=== PATIENT | female | born 1980 | race Caucasian/White ===

== ENCOUNTER → 2017-01-14 | Outpatient (REF) | payer OTHER, MEDICAID | LOC: M SFHCWAGY 15:35 | PROVIDERS: ATTEND Nurse Practitioner Family | DX: Z11.3 Encounter for screening for infections with a predominantly sexual mode of transmission (principal); R35.0 Frequency of micturition ==

== ENCOUNTER → 2017-01-17 | Outpatient (CLI) | payer MEDICAID ==
--- NOTE | 2017-01-17 12:13 | REP ---
Pelvic sonography: History: Menorrhagia. Findings: Transabdominal and transvaginal scanning are performed. Uterine dimensions are 10.1 x 4.9 x 5.7 cm. Endometrial echo 0.4 cm thick. No focal uterine mass is seen. An IUD is seen in good position. There is a small quantity of fluid in the cul-de-sac. There is a 2.2 x 0.9 x 1.9 cm complex cystic area in the right ovary. Adjacent to this, there are smaller 1.7 and 1.3 cm cysts. These appear to be follicle cysts. Overall dimensions of the right ovary are 5.2 x 3.4 x 2.8 cm. Left ovary dimensions of 3.0 x 1.4 x 1.7 cm. Left ovary is unremarkable. Impression: Hypoechoic 2.2 cm cystic area right ovary compatible with hemorrhagic follicle. Otherwise unremarkable pelvic sonography. IUD in good position.
== END ==
LOC: M WHC 10:26
PROVIDERS: ATTEND Nurse Practitioner Family
DX: N92.1 Excessive and frequent menstruation with irregular cycle (principal); Z97.5 Presence of (intrauterine) contraceptive device; N83.201 Unspecified ovarian cyst, right side

== ENCOUNTER → 2017-02-27 | Outpatient (REF) | payer OTHER | LOC: M SFHCWAGY 09:44 | PROVIDERS: ATTEND Nurse Practitioner Family | DX: Z12.4 Encounter for screening for malignant neoplasm of cervix (principal) ==

== ENCOUNTER 2019-04-30 21:22 | Emergency (ER) | payer OTHER ==
[~2019-04-30] VITALS: Ht 162.6 cm; Wt 99.1 kg
[2019-04-30 22:42] LABS: BASO % 0.5 % (0.0-1.0); EOS # 0.1 10^3/uL (0.0-0.50); EOS % 1.2 % (0.0-3.0); HEMATOCRIT 42.3 % (36.0-47.0); HEMOGLOBIN 14.6 g/dl (12.0-15.5); LYMPH # 3.1 10^3/uL (1.5-4.5); LYMPH % 36.3 % (24.0-44.0); MEAN CORPUSCULAR HEMOGLOBIN 32.3 pg (27.0-33.0); MEAN CORPUSCULAR HGB CONC 34.5 g/dl (32.0-36.5); MEAN CORPUSCULAR VOLUME 93.6 fl (80.0-96.0); MONO # 0.8 10^3/uL (0.0-0.8); NEUTROPHILS # 4.6 10^3/uL (1.8-7.7); NEUTROPHILS % 52.9 % (36.0-66.0); PLATELET COUNT, AUTOMATED 236 10^3/uL (150-450); RED BLOOD COUNT 4.52 10^6/uL (4.00-5.40); WHITE BLOOD COUNT 8.6 10^3/uL (4.0-10.0)
[2019-04-30] MEDS ORDERED: KETOROLAC 30 MG/ML VIAL (J1885) IV ONE (23:00)
[2019-04-30 23:09] LABS: ALBUMIN 3.6 GM/DL (3.2-5.2); ALT/SGPT 119 U/L (12-78); BILIRUBIN,DIRECT 0.2 MG/DL (0.0-0.2); BILIRUBIN,TOTAL 0.6 MG/DL (0.2-1.0); BLOOD UREA NITROGEN 8 MG/DL (7-18); CARBON DIOXIDE LEVEL 31 MEQ/L (21-32); CHLORIDE LEVEL 106 MEQ/L (98-107); CREATININE FOR GFR 0.59 MG/DL (0.55-1.30); GLOMERULAR FILTRATION RATE > 60.0 (>60); GLUCOSE, FASTING 89 MG/DL (70-100); LIPASE 90 U/L (73-393); POTASSIUM SERUM 4.1 MEQ/L (3.5-5.1); SODIUM LEVEL 141 MEQ/L (136-145); TOTAL PROTEIN 6.9 GM/DL (6.4-8.2)
[2019-04-30] MEDS ORDERED: COLA100C5 PO (23:48)
[2019-04-30] MEDS ORDERED: DULC10SU2 PR (23:48)
[2019-04-30] MEDS ORDERED: MIRA3350 PO (23:48)
[2019-05-01 00:05] VITALS: BP 132/63
--- NOTE | 2019-05-01 08:22 | REP ---
Supine abdomen two views: There are no comparisons. The bowel gas pattern is normal. There are calcifications in the pelvis, nonspecific, ureteral versus phleboliths. There is an IUD in the pelvis. The skeletal structures and soft tissues otherwise are unremarkable. Impression: Normal bowel gas pattern. Electronically Signed by Sage Kong MD 05/01/2019 08:14 A
== END 2019-05-01 00:06 | disposition home or self-care (01) ==
LOC: M ED 21:22
DX: K59.00 Constipation, unspecified (principal); K76.0 Fatty (change of) liver, not elsewhere classified; Z88.0 Allergy status to penicillin; Z91.018 Allergy to other foods
CPT/HCPCS: 74018; 80048; 80076; 81001; 83690; 84702; 85025; 96374; 99284; J1885

== ENCOUNTER → 2019-12-02 | Outpatient (CLI) | payer OTHER ==
[~2019-12-02] MED LIST: COLA100C5 PO; DULC10SU2 PR; MIRA3350 PO
--- NOTE | 2019-12-02 13:32 | REP ---
PELVIC ULTRASOUND:? Real-time sonographic evaluation of the pelvis performed utilizing transabdominal and endovaginal technique. Bladder measures 6.3 x 4.9 cm. Uterus measures 9.1 x 5.2 x 5.8 cm. Endometrial thickness is approximately 5 mm. No endometrial fluid collection is seen. IUD is seen in the endometrial canal and appears to be in good position. Ovaries are normal in size and echotexture, right ovary measuring 2.0 x 1.7 x 2.5 cm and left ovary 3.3 x 1.6 x 1.4 cm. There is no adnexal mass or free fluid. There is no evidence of ovarian torsion, blood flow is seen in each ovary with duplex Doppler evaluation. Anterior uterine fibroid measures 1.3 x 0.8 x 1.1 cm. IMPRESSION: Anterior uterine fibroid 1.3 cm in maximum diameter. IUD appears to be in good position in the endometrial canal. No evidence of adnexal mass or free fluid.
== END ==
LOC: M WHC 10:25
PROVIDERS: ATTEND Nurse Practitioner Family
DX: R10.32 Left lower quadrant pain (principal); N94.12 Deep dyspareunia

== ENCOUNTER → 2019-12-14 | Outpatient (CLI) | payer OTHER ==
--- NOTE | 2019-12-14 12:01 | REP ---
HIDA SCAN WITH GALLBLADDER EJECTION FRACTION: Following the intravenous administration of 6.6 mCi of technetium-99m mebrofenin, multiple images of the right upper quadrant are performed every 5 minutes for a period of 1 hour. Gallbladder is visualized at 10 minutes post injection. There is biliary to bowel transit at 20 minutes post injection. There is no scintigraphic evidence of cholecystitis. At the 1 hour alessandro 8 ounces of Ensure Enlive is ingested and further imaging performed for 1 hour. The gallbladder ejection fraction is calculated to be 71% which is normal. IMPRESSION: Normal gallbladder ejection fraction. Electronically Signed by Sage Mccormack MD 12/14/2019 12:58 P
== END ==
LOC: M RAD 08:49
PROVIDERS: ATTEND Physician Assistant Medical
DX: R10.11 Right upper quadrant pain (principal)
CPT/HCPCS: 78227; A9537

== ENCOUNTER → 2019-12-17 | Outpatient (REF) | payer OTHER ==
[2019-12-17 17:39] LABS: BASO % 0.4 % (0.0-1.0); EOS # 0.1 10^3/uL (0.0-0.5); EOS % 1.3 % (0.0-3.0); HEMOGLOBIN 14.5 g/dl (12.0-15.5); LYMPH # 2.9 10^3/uL (1.5-5.0); LYMPH % 30.7 % (24.0-44.0); MEAN CORPUSCULAR HEMOGLOBIN 31.3 pg (27.0-33.0); MEAN CORPUSCULAR VOLUME 94.8 fl (80.0-96.0); MONO # 0.9 10^3/uL (0.0-0.8); MONO % 9.3 % (0.0-5.0); NEUTROPHILS # 5.5 10^3/uL (1.5-8.5); PLATELET COUNT, AUTOMATED 287 10^3/uL (150-450); RED BLOOD COUNT 4.64 10^6/uL (4.00-5.40); WHITE BLOOD COUNT 9.5 10^3/uL (4.0-10.0)
[2019-12-17 18:00] LABS: C REACTIVE PROTEIN QUANTITATIV 0.63 MG/DL (0.00-0.30); RHEUMATOID FACTOR QUANT < 10.0 IU/ML (<15.0)
[2019-12-17 19:24] LABS: ERYTHROCYTE SEDIMENTATION RATE 11 mm/hr (0-20)
== END ==
LOC: M LABDRAW1 16:51
PROVIDERS: ATTEND Orthopaedic Surgery
DX: M25.552 Pain in left hip (principal)

== ENCOUNTER → 2020-04-28 | Outpatient (CLI) | payer OTHER ==
[~2020-04-28] MED LIST changes: +GASTROGRAFIN SOLUTION 30ML (Q9963) As Ordered ONE; +ISOVUE-370 76% 100ML VIAL As Ordered ONE
--- NOTE | 2020-05-30 16:04 | REP ---
CT OF THE ABDOMEN AND PELVIS WITH IV AND ORAL CONTRAST: HISTORY: Epigastric swelling. Mass/lump. Periumbilical swelling. COMPARISON: No comparison CT study. CONTRAST DOSE: 100 ml of intravenous Isovue 370 is administered. FINDINGS: Preliminary digital screen maker radiograph demonstrates an unremarkable bowel gas pattern. The lung bases are clear on axial CT images. The liver and spleen are normal in size, homogeneous in texture. There are granulomatous calcifications scattered about the spleen parenchyma. No focal hepatic lesion is seen. No abnormality is noted in the gallbladder. Normal adrenal glands are present bilaterally. The pancreas is unremarkable. No retroperitoneal mass or adenopathy is seen. The kidneys enhance symmetrically and are morphologically intact. No abdominal wall defect is seen. No abdominal mass lesion is observed. There is an IUD in the uterus in what appears to be good position. No ovarian abnormality is observed on either side. No free fluid is noted. Small and large intestinal bowel loops are unremarkable. A normal appendix is seen in the right lower quadrant. Bone window settings show no bony destructive lesion. IMPRESSION: No acute abdominal or pelvic abnormality. Granulomatous calcifications seen in the spleen. Normal appendix. No evidence of abdominal mass or hernia. MTDD
== END ==
LOC: M RAD 12:41
PROVIDERS: ATTEND Internal Medicine Gastroenterology
DX: R19.06 Epigastric swelling, mass or lump (principal); R19.05 Periumbilic swelling, mass or lump; R10.13 Epigastric pain; D73.89 Other diseases of spleen
CPT/HCPCS: 74177; Q9963; Q9967

== ENCOUNTER → 2020-06-03 | Outpatient (CLI) | payer OTHER ==
[~2020-06-03] MED LIST changes: -GASTROGRAFIN SOLUTION 30ML (Q9963) As Ordered ONE; -ISOVUE-370 76% 100ML VIAL As Ordered ONE
== END ==
LOC: M LABSMTC 11:35
PROVIDERS: ATTEND Anesthesiology
DX: Z01.812 Encounter for preprocedural laboratory examination (principal); Z20.828 Contact with and (suspected) exposure to other viral communicable diseases
CPT/HCPCS: C9803; U0003

== ENCOUNTER 2020-06-08 11:17 | Day surgery (SDC) | payer OTHER ==
[~2020-06-08] VITALS: Ht 162.6 cm; Wt 100.4 kg
[~2020-06-08 11:17] MED LIST changes: +NS 1,000 ML IV ONE
[2020-06-08] MEDS ORDERED: LIDOCAINE 2% 100MG/5ML SDV (FOR ANES.) As Ordered ONE (12:40)
[2020-06-08] MEDS ORDERED: propofoL 500 MG/50 ML VIAL As Ordered ONE (12:40)
--- NOTE | 2020-06-08 13:30 | ROOR ---
Patient Name: Elizabeth Long Procedure Date: 06/08/2020 1:10 PM Date of : 1980 Age: 39 Room: [facility] Gender: Female Note Status: Finalized Procedure: Upper GI endoscopy Indications: Epigastric abdominal pain, Periumbilical abdominal pain Providers: James ROCK MD Referring MD: MIRELA Sotelo Requesting Provider: Medicines: Monitored Anesthesia Care Complications: No immediate complications. Procedure: Pre-Anesthesia Assessment: - The heart rate, respiratory rate, oxygen saturations, blood pressure, adequacy of pulmonary ventilation, and response to care were monitored throughout the procedure. The Endoscope was introduced through the mouth, and advanced to the second part of duodenum. The upper GI endoscopy was accomplished without difficulty. The patient tolerated the procedure well. Findings: Non-severe esophagitis was found at the gastroesophageal junction. Biopsies were taken with a cold forceps for histology. The exam of the esophagus was otherwise normal. The entire examined stomach was normal. The examined duodenum was normal. Impression: - Mild esophagitis. Biopsied. - Esophagus is otherwise normal. - Normal stomach. - Normal examined duodenum. Recommendation: - Observe patient's clinical course. - Continue present medications. James Rock MD James ROCK MD 06/08/2020 1:30:05 PM Electronically signed by James ROCK MD Number of Addenda: 0 Note Initiated On: 06/08/2020 1:10 PM Estimated Blood Loss: Estimated blood loss: none.
--- NOTE | 2020-06-08 13:49 | ROOR ---
Patient Name: Elizabeth Long Procedure Date: 06/08/2020 1:11 PM Date of : 1980 Age: 39 Room: [facility] Gender: Female Note Status: Finalized Procedure: Colonoscopy Indications: Epigastric abdominal pain, Periumbilical abdominal pain, Change in bowel habits Providers: James ROCK MD Referring MD: MIRELA Sotelo Requesting Provider: Medicines: Monitored Anesthesia Care Complications: No immediate complications. Procedure: Pre-Anesthesia Assessment: - The heart rate, respiratory rate, oxygen saturations, blood pressure, adequacy of pulmonary ventilation, and response to care were monitored throughout the procedure. The Colonoscope was introduced through the anus and advanced to 15 cm into the ileum. The colonoscopy was performed without difficulty. The patient tolerated the procedure well. The quality of the bowel preparation was good. Findings: The perianal and digital rectal examinations were normal. The entire examined colon appeared normal on direct and retroflexion views. The terminal ileum appeared normal. Impression: - The entire colon is normal on direct and retroflexion views. - The examined portion of the ileum was normal. - No specimens collected. Recommendation: - Use fiber, for example Citrucel, Fibercon, Konsyl or Metamucil. - TRIAL: Use Bentyl (dicyclomine) 20 mg every 6-8 hrs as needed for abdominal pain - (the script was sent to your pharmacy on file) James Rock MD James ROCK MD 06/08/2020 1:49:28 PM Electronically signed by James ROCK MD Number of Addenda: 0 Note Initiated On: 06/08/2020 1:11 PM Estimated Blood Loss: Estimated blood loss: none.
[2020-06-08 14:15] VITALS: BP 143/79
== END 2020-06-08 15:00 | disposition home or self-care (01) ==
LOC: M OPP 11:17
PROVIDERS: ATTEND Internal Medicine Gastroenterology
DX: R10.13 Epigastric pain (principal); R10.33 Periumbilical pain; R19.4 Change in bowel habit; K20.90 Esophagitis, unspecified without bleeding; K74.60 Unspecified cirrhosis of liver; Z88.0 Allergy status to penicillin; Z91.018 Allergy to other foods

== ENCOUNTER → 2020-08-03 | Outpatient (CLI) | payer SELFPAY ==
[~2020-08-03] MED LIST changes: -NS 1,000 ML IV ONE
== END ==
LOC: M LABSMTC 13:46
PROVIDERS: ATTEND Pediatrics
DX: Z20.828 Contact with and (suspected) exposure to other viral communicable diseases (principal)

== ENCOUNTER → 2020-11-23 | Outpatient (REF) | payer OTHER | LOC: M SFHCWAGY 13:29 | PROVIDERS: ATTEND Nurse Practitioner Family | DX: Z12.4 Encounter for screening for malignant neoplasm of cervix (principal) ==

== ENCOUNTER → 2020-11-30 | Outpatient (CLI) | payer OTHER ==
--- NOTE | 2020-11-30 16:11 | REPMRS ---
Patient History The patient states she had a clinical breast exam in 10/2020. Family history of ovarian cancer at age 43 in maternal cousin. Taking hormonal contraceptives for 18 years. 3D TOMOSYNTHESIS WAS PERFORMED. [facility] lifetime risk for breast cancer is 8.9%. Volpara breast density b. Digital Woman Screen Mammo: November 30, 2020 - Exam #: [id number] Bilateral CC and MLO view(s) were taken. Technologist: Kenya Astudillo, Technologist No prior studies available for comparison. FINDINGS: There are scattered fibroglandular densities. There is a mild amount of residual fibroglandular tissue which is fairly symmetric. There is no dominant mass, architectural distortion, or clustered microcalcification suggestive of malignancy. Assessment: BI-RADS/ACR category 1 mammogram. Negative Mammogram. Recommendation Routine screening mammogram in 1 year (for women over age 40). This mammogram was interpreted with the aid of an FDA-approved computer-aided dectection system. Electronically Signed By: Sage Mccormack MD 11/30/20 [id number]
== END ==
LOC: M WHC 15:00
PROVIDERS: ATTEND Nurse Practitioner Family
DX: Z12.31 Encounter for screening mammogram for malignant neoplasm of breast (principal); Z79.3 Long term (current) use of hormonal contraceptives

== ENCOUNTER → 2020-12-22 | Outpatient (CLI) | payer SELFPAY | LOC: M LABSMTC 14:11 | PROVIDERS: ATTEND Pediatrics | DX: Z11.52 Encounter for screening for COVID-19 (principal) ==

== ENCOUNTER 2021-08-08 16:41 | Emergency (ER) | payer OTHER, SELFPAY ==
[~2021-08-08] VITALS: Ht 162.6 cm; Wt 101.5 kg
--- OUTSIDE RECORDS SUMMARY | 2021-08-08 16:51 | CCD | Clinical Summary ---
[facility] Address [address] [place] [address] Phone Care Team Providers Care Finish Filer Name Role Phone Alanna Luis PP [phone] [facility], Group Unavailable [phone] [facility] Radiology, Imaging Unavailable [phone] Reason for Referral No Reason for Referral Recorded Reason for Visit and Chief Complaint Acute Follow-up Telephonic Problems Includes: Problems addressed during this encounter and other active Problems Current Visit Onset Date - Time Resolved Date - Time Provider C ondition Status Allergic Rhinitis 02/18/2018 - 12:00AM Beatrice L Ray DO Active Past Visits Onset Date - Time Resolved Date - Time Provider Co ndition Status History of Tendonitis and Enthesopathy 01/01/2020 - 12:00AM Charley Jefferson RN Active Note: Per consult note dated 01/02/2021 from [facility], right ankle extensor tendonitis & short right ankle achilles tendon. Cam boot x 6 weeks. Abdominal Pain--luq 04/30/2019 - 12:00AM Sowmya Quijano NP Active Asthma Mild Intermittent with Exacerbation 02/18/2018 - 12:00AM Beatrice L Ray DO Active Chest Pain 02/18/2018 - 12:00AM Beatrice L Ray DO Acti ve Periorbital Cellulitis 12/17/2017 - 12:00AM Leeann Alonso NP Active Contact Dermatitis Due To Plants Poison Greta 03/18/2017 - 12:00AM Kenneth Linda MD Active Note: fell into poison greta a [employer] [place] 3 days ago. Itchy swollen rash rt knee and both lower legs. Adjustment Disorder 09/16/2016 - 12:00AM Alanna DIETZ Active Note: Unchanged Tension-type Headache 07/23/2016 - 12:00AM Alanna Anthony NP Active Note: 08/02/16- Neuro consul t with N[facility], tension headaches, meds started and f/u in 4 wks. POSSIBLE PER NEURO IN [place]. Thyroid Nodule 12/20/2011 - 12:00AM Alanna DIETZ Active Note: 0.6cm thyroid nodule ultrasound follows with ENT [facility] radiology Imaging- 07/15/15 José Luis nava Solitary nodule in d aspect L thyroid lobe now 7x6x4 preciously 6x5x3 mm 2 1/2 yrs ago Elevated Liver Enzymes 04/27/2011 - 12:00AM Alanna DIETZ Active Note: SEES DR R[facility] W[facility] GI, CT WNL FOR LIVER, SPLEEN SLIGHTLY ENLARGED, GRANULOMATOUS-- HEPATITIS/MONO PANEL ALSO NEG BIOPSY PENDING SEE 01/[address] Rock report dated 01/15/12- Liver biopsy results: consistent with steatohepatits/GUERRERO- txt-is weight loss encouraged, Chronic Sinusitis - Maxillary 04/03/2011 - 12:00AM Alanna Anthony NP Active Note: see consult from Dr. Shay mcmahon sinus surgery & septoplasty . lysis left intranasal adhesions & revisions left MMA-- improvement in fullness left sided Chronic Rhinitis 04/03/2011 - 12:00AM Alanna DIETZ Active Note: see consult from Dr.Pa avalos - Pt to under go septoplasty & sinus surgery . MAY HAVE TO REDO ANTROPLASTY PER ENT IF VOCAL ISSUES CONT--See report per Dr. Ashtyn Conn ENT -Flexible fiberoptic laryngoscopy for hoarseness. Mild to moderate post cricoid edema. Mild chronic inflammation of TVC bilaterally.Tympanosclerosis involving typanic membrane only-tmpanometry- should be used if she is suspected of having a middle ear effusion and confirm it. Use nasacort if ear pain develops. Tonsillitis Chronic 04/03/2011 - 12:00AM Farnaz hoffman [employer] ENGINEER Active Note: tonsils for tonsils, sinus surgery Voice Disturbance Nec 04/03/2011 - 12:00AM Alanna Street Active Note: per consult from Dr.Pa avalos inhalers ,PND , Reflux are all contributory DOES HAVE VOCAL CORD POLYPS AND EDEMA 07/2011 SCOPE PER ENT /// VOICE REST ENCOURAGED Nonorganic Sleep Apnea 03/22/2011 - 12:00AM Alanna DIETZ Active Note: syndrome symptoms , nocturnal polysomnography 03/2011 SHOWS PT'S ISSUE IS WHEN SHE LIES ON HER BACK-- ADVISED BY PULMONARY TO USE TENNIS BALL IN SOCK ON BACK SO SHE DOESNT LIE ON HER BACK . See consult from Streptococcus Unspecified 03/08/2011 - 12:00AM Alanna DIETZ Active Note: RECURRENT HAS APPT WIT H ENT FOR TONSIL REMOVAL-- Esophagitis Chronic Reflux 01/31/2011 - 12:00AM Beatrice Don DO Active Note: normal endoscopy per Doug Rock, 12/2010-- cont PPI, lifestyle changes --DEXLIANT AND OMEPRAZOLE PRESCRIBED BY DR CONN, ENT FOR HOARSENESS -- VOCAL CORD EDEMA Plan of Treatment Future Appointments Date Time Location Provider H Adult Prophy 06/19/2021 12:35PM [facility] Natasha nieto [facility] 01/05/2022 10:00AM [facility] Alanna DIETZ Continue fluids and rest. Use ice packs and warm packs and Tylenol in addition to nsaids as needed for neck pain and symptoms watch motrin dosing for neck pain. Please go to ER if neck pain or fever does not improve or worsens and discussed possibilities of concerns such as meningitis. Assessments Includes: Assessments from this encounter - Allergic rhinitis - Asthma totalvisit time with Faina DIETZ with Alanna DIETZ present was 24 minutes telephonic visit wants to see how she does with neck pain and fever- -risks reviewed - Esophageal reflux continue famotidine as needed - Viral infection Instructions Includes: Instructions from this encounterNo Instructions Recorded Medical Equipment - Implanted Devices Includes: Current DevicesNo Medical Equipment Recorded Medications Includes: Medications discussed during this encounter and other current Medicati ons Current Medications (continue as prescribed) Chlorhexidine Gluconate 0.12% Mouth/Throat Solution 05/24/20 21 Provider: Nicky David DDS Diagnosis: twice a day after brushing, swish and spit approx one capful Pantoprazole Sodium 40 MG Oral Tablet Delayed Release 2020 - 10/30/2021 Provider: Alanna DIETZ Diagnosis: Gastro-esophageal re flux dis with esophagitis, with bleed once a day change from omeprazole predniSONE 20 MG Oral Tablet 12/28/2020 Provider: Alanna DIETZ Diagnosis: Cervicalgia one BID for 3 days, one daily for 3 day s, and 1/2 tab daily for 3 days with food Ventolin HFA 108 (90 Base) MCG/ACT Inhalation Aerosol Soluti on 06/24/2020 Provider: Alanna DIETZ Diagnosis: Mild intermittent as thma with (acute) exacerbation as directed; 2 puffs INH Q4hr PRN SOB/ wheezing Paragard Intrauterine Copper Intrauterine device 06/24/2020 - 06/19/2021 Provider: Diagnosis: [employer] Famotidine 20 MG Oral Tablet 06/24/2020 Provider: Alanna DIETZ Diagnosis: Gastro-esophageal re flux disease without esophagitis once a day with esophagitis Past Medications on file Azithromycin 250 MG Oral Tablet 03/31/2021 - 04/05/2021 Prov ider: Ang Juarez DDS Diagnosis: take 2 tabs on day 1, 1 tab on days 2-5 Medications Administered Includes: Administered Medications from this encounterNo Administered Medications Recorded Vital Signs Includes: Vital Signs from this encounterNo Vital Signs Recorded For Specified Dates Results Includes: Results discussed during this encounterNo Results Recorded For Specified Dates History of Present Illness Includes: History of Present Illness from this encounter Elizabeth Long is a 40 year old female. no previous history of HPI [use for free text]. Elizabeth is a 40 year old female who presents vis telephonic encounter for follow-up of her respiratory panel and Covid 19 results from 06/14/21 all negative-- . Her diarrhea has resolved however she is still experiencing nausea, headache, and neck pain. Her neck is warm and painful and she uses ice and Tylenol to alleviate the pain. She is taking Tylenol 500mg every 5-6 hours. She couldn't sleep last night due to the pain in her neck and her temperature at that time was 102.2F. Her temp this afternoon was 101F and she took Tylenol at this time. During the time of the visit her temperature was 99.8F. She is concerned mostly about the pain in her neck that is not improving. She is drinking fluids and resting as recommended. Social History Description Last Updated Smoking status 12/28/2020 : Never smoker 06/14/2021 Alcohol use 02/19/2020 (female) less than 3 drinks per occasion / 7 per week 02/19/2020 Not using drugs 02/19/2020 02/19/2020 No secondhand cigarette smoke exposure 04/30/2019 Procedures and Surgical History Surgical History Last Updated History of tonsillectomy 201003/18/2017 Medical History Includes: Medical History addressed during this encounter Description Last Updated Right hand trauma per previous history, resolved ~Asthma, well controlled, has nebs during illness ~IUD followed with [employer] ENGINEER, ~fibroid, 1.3 cm 2019 ~tonsilectomy 201002/19/2020 Aborta 1 03/18/2017 Exposure to streptococcus 03/18/2017 3 03/18/2017 Para 2 03/18/2017 Past medical history -Please see Problem List for Act debi Chronic Problems 03/18/2017 Trauma to the ankle(s) 03/18/2017 Cervical Pap smear 09/15/2014 Dr Archana Snell 2015 Patient screening 07/28/2014 Offered for HIV refused 10/26/2015 Family History Includes: Family History addressed during this encounter Description Last Updated Family history of cancer M AUNT BREAST CANCER (3 aunt s) 03/18/2017 Review of Systems Includes: Review of Systems from this encounter Systemic: No night sweats. Neck: Neck pain. No neck stiffness and no lump or swelling in the neck. Cardiovascular: No chest pain or discomfort, no palpitations, and the heart rate was not fast. Pulmonary: No dyspnea, no cough, no hemoptysis, and no wheezing. Gastrointestinal: Normal appetite, no dysphagia, and no heartburn. No nausea, no vomiting, no abdominal pain, and no melena. No diarrhea. Genitourinary: No hematuria and no increase in urinary frequency. No dysuria. No genital lesion. Endocrine: No polydipsia, no excessive sweating, and libido has not changed. Musculoskeletal: No muscle aches. Pain localized to one or more joints. No localized joint stiffness. Neurological: No dizziness, no vertigo, no fainting, no motor disturbances, and no sensory disturbances. Psychological: No anxiety, no depression, and no sleep disturbances. Skin: No pruritus. No skin lesions. Mental Status Includes: Mental Status from this encounter Description No anxiety Functional Status Includes: Functional Status from this encounterNo Functional Status Recorded Physical Exam Includes: Physical Exam from this encounter Immunizations Includes: Immunizations addressed during this encounterNo Immunizations Recorded Allergies Includes: Active Allergies Substance Type Reaction Onset Date - Time Resolved Date - Ti me Status Penicillin G Benzathine Intolerance Nausea, Vomiting, Diarrh ea 03/08/2011 - 12:00AM Active Nuts Allergy Asthma, Shortness of Breath 03/24/2008 - 12:00A M Active Encounters Encounter Provider Location Date Check-In Time Check-Out Time D iagnosis Acute Follow-up Telephonic Alanna DIETZ [facility] 021 4:00PM 5:05PM Infectious Disease - Viral, Allergic Rhi nitis, Asthma, Esophageal Reflux Insurance Includes: Active Insurance Policies Plan Name Member ID Group # Subscriber Relationship Effective Da [place]o 1 - [facility] Medicaid [id number] Elizabeth Long Self 09/02/2019 - Unknown 2 - [facility] Medicaid [id number] Long Self 05/22/2021 - Unknown Advance Directives Includes: Current Advance Directives Directive [employer] Effective Date Reviewed Status RHIO Yes 05/01/2012 Current and Ve rified Note: 04/30/12 packet given Pt Bill of Rights, Priv Prac, Ad Dir Yes 09/28/2019 Current and Verified Note: Pt declined AD packet Ebola Screening Performed Yes 05/26/2020 Current and Verified Note: Within the last month, have you traveled outside of the [place]? - NO Health Concerns Includes: Health Concerns for current assessmentsNo Active Health Concerns Recorded Goals Includes: Active Goals for current assessmentsNo Active Goals Recorded Interventions Includes: Interventions for current assessmentsNo Interventions Recorded Evaluations & Outcomes Includes: Evaluations & Outcomes for current assessmentsNo Outcomes Recorded
--- OUTSIDE RECORDS SUMMARY | 2021-08-08 16:51 | CCD | Clinical Summary ---
Author Author [facility] Address [address] [place] [address] Phone Care Team Providers Care Applications Specialist Name Role Phone Alanna Luis PP [phone] [facility] Unavailable [phone] [facility] Radiology, Imaging Unavailable [phone] Reason for Referral No Reason for Referral Recorded Reason for Visit and Chief Complaint visit for: Telehealth Encounter for Acute Care. Telehealth is being utilized du e to the COVID19 pandemic - The Chief Complaint is:, The Chief Complaint is: Keith muñoz telephoned for telehealth appointment during covid 19 pandemic. Verbal con sent obtained. Patient is complaining of headache for 5 days. Patient also compl aining of of nausea and diarrhea since yesterday. Patient states today she lost her sense of taste. [employer] Problems Includes: Problems addressed during this encounter and other active Problems Current Visit Onset Date - Time Resolved Date - Time Provider C ondition Status Allergic Rhinitis 02/18/2018 - 12:00AM Beatrice Don DO Active Asthma Mild Intermittent with Exacerbation 02/18/2018 - 12:00AM Beatrice Don DO Active Past Visits Onset Date - Time Resolved Date - Time Provider Co ndition Status History of Tendonitis and Enthesopathy 01/01/2020 - 12:00AM Charley Jefferson RN Active Note: Per consult note dated 01/02/2021 from [facility], right ankle extensor tendonitis & short right ankle achilles tendon. Cam boot x 6 weeks. Abdominal Pain--luq 04/30/2019 - 12:00AM Sowmya Quijano [employer]ER Active Chest Pain 02/18/2018 - 12:00AM Beatrice Don DO Acti ve Periorbital Cellulitis 12/17/2017 - 12:00AM Leeann Alonso NP Active Contact Dermatitis Due To Plants Poison Greta 03/18/2017 - 12:00AM Kenneth Linda MD Active Note: fell into poison greta a t [facility] 3 days ago. Itchy swollen rash rt knee and both lower legs. Adjustment Disorder 09/16/2016 - 12:00AM Alanna DIETZ Active Note: Unchanged Tension-type Headache 07/23/2016 - 12:00AM Alanna Anthony NP Active Note: 08/02/16- Neuro consul t with [facility], tension headaches, meds started and f/u in 4 wks. POSSIBLE PER NEURO IN [place]. Thyroid Nodule 12/20/2011 - 12:00AM Alanna DIETZ Active Note: 0.6cm thyroid nodule ultrasound follows with ENT [facility] radiology Imaging- 07/15/15 José Luis nava Solitary nodule in d aspect L thyroid lobe now 7x6x4 preciously 6x5x3 mm 2 1/2 yrs ago Elevated Liver Enzymes 04/27/2011 - 12:00AM Alanna DIETZ Active Note: SEES [facility] GI, CT WNL FOR LIVER, SPLEEN [...] Alanna DIETZ Active Note: see consult from ge - Pt to under go septoplasty & [...] Tonsillitis Chronic 04/03/2011 - 12:00AM Farnaz hoffman NP Active Note: tonsils for tonsils, sinus surgery [...] -- VOCAL CORD EDEMA Plan of Treatment Pending Tests Order Diagnosis Results Due Ordering Provi pepper Visit Summary - Standard Visit Visit Summary Standard Visi t Viral infection, unspecified 06/14/21 Alanna DIETZ Future Appointments Date Time Location Provider H Adult Prophy 06/19/2021 12:35PM [facility] Natasha nieto [facility] 01/05/2022 10:00AM [facility] Alanna DIETZ - Return to the clinic if condition worsens or new symptoms arise Drink plenty of fluids to stay hydrated. Rest is encouraged, however do not remain sedentary. Exercise and movement throughout the day with help in preventing complication from COVID such as blood clots and pneumonia. The patient is required to quarantine until test results come back. Using separate bathrooms from other household members is advised if possible. A carside test was done today after a FaceTime visit. Patient was advised if headache is progressive or worsening to go to emergency room The patient was advised to take Tylenol or Motrin for fever. Assessments Includes: Assessments from this encounter - Allergic rhinitis - Mild intermittent asthma with exacerba tion using inhaler, pred not needed at this point, will monitor-- see plan as below-- total visit time today is 27 minutes >50%counseling, coordination of care - Viral syndrome Instructions Includes: Instructions from this encounterNo Instructions Recorded Medical Equipment - Implanted Devices Includes: Current DevicesNo Medical Equipment Recorded Medications Includes: Medications discussed during this encounter and other current Medicati ons Discontinued / Stopped on this date He [facility] on 03/20/2021 CeleBREX 50 MG Oral Capsule Provider: [facility] Diagnosis: Celecoxib 100 MG Oral Capsule Provider: [facility] Diagnosis: Current Medications (continue as prescribed) Chlorhexidine Gluconate 0.12% Mouth/Throat Solution 05/24/20 Provider: Nicky David DDS Diagnosis: twice a [...] Intrauterine device 06/24/2020 - 06/19/2021 Provider: Diagnosis: [employer] Famotidine 20 MG Oral Tablet 06/24/2020 Provider: [...] Vital Signs Includes: Vital Signs from this encounter Vital Name 06/14/2021 05:28P Pain Level 8 Note: unable to obtain vital signs Results Includes: Results discussed during this encounterNo Results Recorded For Specified Dates History of Present Illness Includes: History of Present Illness from this encounter Elizabeth Long is a 40 year old female. - Allergy list reviewed - Medication reconciliation performed h zulay 2-3 days-- moderate posterior head pain where her neck meets her head without neck stiffness or swelling. Tylenol without relief. 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 and had a sprite and couldn't taste it nausea-- most of the day diarrhea--at school she has had diarrhea all day yest and today, thought it was milk fever-- cold on and off all day, doesn't feel like she has a fever sore throat-- yesterday but has resolved today no known covid exposure, pt is not vaccinated no cough or congestion - Previously well - - Primary physician: DIANELYS Alexander - No systemic symptoms Social History Description Last Updated Smoking status 06/14/2021 : Never smoker 06/14/2021 Alcohol use 02/19/2020 (female) less than 3 drinks per occasion / 7 per week 02/19/2020 Not using drugs 02/19/2020 02/19/2020 No secondhand cigarette smoke exposure 04/30/2019 Procedures and Surgical History Includes: Procedures from this encounter Procedures Code Diagnosis Performing Provider Service Location Service Date Transition in care medication list update Summary provided electronically in CCDA format & reasonable certainty of receipt Surgical History Last Updated History of tonsillectomy 201003/18/2017 Medical History Includes: Medical History addressed during this encounter Description Last Updated Right hand trauma per previous history, resolved ~Asthma, well controlled, has nebs during illness ~IUD followed with [employer], ~fibroid, 1.3 cm 2019 ~tonsilectomy 201002/19/2020 Aborta [...] Systems Includes: Review of Systems from this encounterNo Review of Systems Recorded Mental Status Includes: Mental Status from this encounter Description Oriented to time, place, and person Functional Status Includes: Functional Status from this encounterNo Functional Status Recorded Physical Exam Includes: Physical Exam from this encounter Eyes: -the extraocular movements were normal Ears, Nose, Throat: -nasal discharge seen -rhinorrhea Neurological System: -oriented to time, place, and person Skin: -the skin general appearance was abnormal flushed General Status: -in no acute distress Congested. Appeared tired. Otherwise breathing comfortabl y -well developed -well nourished Vital Signs: -current vital signs reviewed Immunizations Includes: Immunizations addressed during this encounterNo Immunizations Recorded Allergies Includes: Active Allergies Substance Type Reaction Onset Date - Time Resolved Date - Ti me Status Penicillin G Benzathine Intolerance Nausea, Vomiting, Diarrh ea 03/08/2011 - 12:00AM Active Nuts Allergy Asthma, Shortness of Breath 03/24/2008 - 12:00A M Active Encounters Encounter Provider Location Date Check-In Time Check-Out Time D iagnosis Acute L1 Alanna Darnell [facility] 06/14/2021 7:20PM 7:37 PM Viral Syndrome, Allergic Rhinitis, Asthma Mild Intermittent with Exacerbation Insurance Includes: Active Insurance Policies Plan Name Member ID Group # Subscriber Relationship Effective [place] 1 - [facility] Medicaid [id number] Elizabeth Long Self 09/02/2019 - Unknown 2 - D [employer] [id number] Elizabeth Monteiro [place] Self 05/22/2021 - Unknown Advance Directives Includes: [...]
[2021-08-08] MEDS ORDERED: ONDA8TAB8 (17:08)
[2021-08-08] MEDS ORDERED: ACET-897 PO (17:08)
[2021-08-08] MEDS ORDERED: EXCETAB44 PO (17:08)
[2021-08-08] MEDS ORDERED: PRED20TA (17:08)
[2021-08-08] MEDS ORDERED: BENA25CA4 PO (17:08)
[2021-08-09] MEDS ORDERED: NS 1,000 ML IV ONE (01:30)
[2021-08-09] MEDS ORDERED: diphenhydrAMINE 50MG/ML VIAL (J1200) IV ONE (01:30)
[2021-08-09] MEDS ORDERED: KETOROLAC 30 MG/ML 1ML VIAL IV ONE (01:30)
[2021-08-09] MEDS ORDERED: METOCLOPRAMIDE INJ 10MG/2ML VIAL (J2765 PER 1) IV ONE (01:30)
[2021-08-09 02:11] LABS: BASO # 0.1 10^3/uL (0.0-0.2); BASO % 0.4 % (0.0-1.0); EOS % 0.2 % (0.0-3.0); HEMATOCRIT 46.2 % (36.0-47.0); HEMOGLOBIN 15.7 g/dl (12.0-15.5); LYMPH # 3.5 10^3/uL (1.5-5.0); LYMPH % 29.3 % (24.0-44.0); MEAN CORPUSCULAR HEMOGLOBIN 30.9 pg (27.0-33.0); MEAN CORPUSCULAR VOLUME 90.9 fl (80.0-96.0); MONO # 0.9 10^3/uL (0.0-0.8); MONO % 7.6 % (2.0-8.0); NEUTROPHILS # 7.5 10^3/uL (1.5-8.5); NEUTROPHILS % 62.3 % (36.0-66.0); PLATELET COUNT, AUTOMATED 321 10^3/uL (150-450); RED BLOOD COUNT 5.08 10^6/uL (4.00-5.40); WHITE BLOOD COUNT 12.1 10^3/uL (4.0-10.0)
--- NOTE | 2021-08-09 02:34 | REPVR ---
PROCEDURE INFORMATION: Exam: CT Head Without Contrast Exam date and time: 08/09/2021 1:28 AM Age: 41 years old Clinical indication: Pain; Headache not specified; Additional info: New onset headache TECHNIQUE: Imaging protocol: Computed tomography of the head without contrast. Radiation optimization: All CT scans at this facility use at least one of these dose optimization techniques: automated exposure control; mA and/or kV adjustment per patient size (includes targeted exams where dose is matched to clinical indication); or iterative reconstruction. COMPARISON: No relevant prior studies available. FINDINGS: Brain: Normal. No hemorrhage. Unremarkable white matter. No mass effect. Cerebral ventricles: No ventriculomegaly. Paranasal sinuses: Visualized sinuses are unremarkable. No fluid levels. Mastoid air cells: Visualized mastoid air cells are well aerated. Bones/joints: Unremarkable. No acute fracture. Soft tissues: Unremarkable. IMPRESSION: Negative noncontrast head CT. Electronically signed by: Colin Bauer On 08/09/2021 02:34:16 AM
[2021-08-09 04:01] LABS: BLOOD UREA NITROGEN 8 MG/DL (7-18); CALCIUM LEVEL 8.5 MG/DL (8.5-10.1); CARBON DIOXIDE LEVEL 24 MEQ/L (21-32); CHLORIDE LEVEL 110 MEQ/L (98-107); CREATININE FOR GFR 0.66 MG/DL (0.55-1.30); GLOMERULAR FILTRATION RATE > 60.0 (>58); GLUCOSE, FASTING 95 MG/DL (70-100); POTASSIUM SERUM 3.6 MEQ/L (3.5-5.1); SODIUM LEVEL 142 MEQ/L (136-145)
[2021-08-09 05:54] VITALS: BP 141/84
== END 2021-08-09 05:55 | disposition home or self-care (01) ==
LOC: M ED 16:41
DX: G43.909 Migraine, unspecified, not intractable, without status migrainosus (principal); Z88.0 Allergy status to penicillin; Z91.018 Allergy to other foods
CPT/HCPCS: 70450; 80048; 85025; 96374; 96375; 99284; J1200; J1885; J2765

== ENCOUNTER 2021-08-11 16:31 | Emergency (ER) | payer OTHER ==
[~2021-08-11] VITALS: Ht 165.1 cm; Wt 95.5 kg
[~2021-08-11 16:31] MED LIST changes: +ACET-897 PO; +BENA25CA4 PO; +EXCETAB44 PO; +ONDA8TAB8; +PRED20TA
[2021-08-11] MEDS ORDERED: MORPHINE 4 MG/ML 1ML VIAL/SYRINGE (J2270) IV ONE (16:50)
[2021-08-11] MEDS ORDERED: ONDANSETRON 4MG/2ML VIAL IV ONE (16:50)
[2021-08-11] MEDS ORDERED: NS 1,000 ML IV ONE (16:50)
[2021-08-11 17:32] LABS: BASO % 0.4 % (0.0-1.0); EOS # 0.1 10^3/uL (0.0-0.5); EOS % 0.9 % (0.0-3.0); HEMATOCRIT 44.9 % (36.0-47.0); HEMOGLOBIN 15.8 g/dl (12.0-15.5); LYMPH # 2.9 10^3/uL (1.5-5.0); LYMPH % 29.6 % (24.0-44.0); MEAN CORPUSCULAR HEMOGLOBIN 31.4 pg (27.0-33.0); MEAN CORPUSCULAR HGB CONC 35.2 g/dl (32.0-36.5); MEAN CORPUSCULAR VOLUME 89.3 fl (80.0-96.0); MONO # 0.6 10^3/uL (0.0-0.8); MONO % 6.2 % (2.0-8.0); NEUTROPHILS # 6.2 10^3/uL (1.5-8.5); NEUTROPHILS % 62.7 % (36.0-66.0); PLATELET COUNT, AUTOMATED 285 10^3/uL (150-450); RED BLOOD COUNT 5.03 10^6/uL (4.00-5.40); WHITE BLOOD COUNT 9.9 10^3/uL (4.0-10.0)
[2021-08-11] MEDS ORDERED: diphenhydrAMINE 50MG/ML VIAL (J1200) IV ONE (17:45)
[2021-08-11] MEDS ORDERED: lisinopriL 5 MG TAB PO ONE (17:45)
[2021-08-11] MEDS ORDERED: KETOROLAC 30 MG/ML 1ML VIAL IV ONE (17:45)
[2021-08-11] MEDS ORDERED: METOCLOPRAMIDE INJ 10MG/2ML VIAL (J2765 PER 1) IV ONE (17:45)
[2021-08-11 18:09] LABS: BLOOD UREA NITROGEN 13 MG/DL (7-18); CALCIUM LEVEL 9.8 MG/DL (8.5-10.1); CARBON DIOXIDE LEVEL 23 MEQ/L (21-32); CHLORIDE LEVEL 108 MEQ/L (98-107); CREATININE FOR GFR 0.75 MG/DL (0.55-1.30); ERYTHROCYTE SEDIMENTATION RATE 15 mm/hr (0-20); GLOMERULAR FILTRATION RATE > 60.0 (>58); GLUCOSE, FASTING 129 MG/DL (70-100); POTASSIUM SERUM 3.9 MEQ/L (3.5-5.1); SODIUM LEVEL 140 MEQ/L (136-145)
[2021-08-11 18:21] VITALS: BP 202/111
[2021-08-11 18:23] LABS: RSV AMPLIFICATION NEGATIVE (NEGATIVE)
[2021-08-11] MEDS ORDERED: MAG SULF 1GM/100ML (MAG RUN) 1 GM in IV 1 EA IV ONE (21:30)
[2021-08-11] MEDS ORDERED: ACETAMINOPHEN 325 MG TAB PO ONE (21:30)
[2021-08-11] MEDS ORDERED: VALPROATE SOD INJ 1,000 MG in D5W 50 ML IV ONE (22:05)
[2021-08-11] MEDS ORDERED: TOPIRAMATE (TopAMAX) 25 MG TAB PO ONE (22:05)
[2021-08-11] MEDS ORDERED: TOPA50TA8 PO (23:17)
[2021-08-11 23:30] VITALS: BP 174/95
== END 2021-08-11 23:56 | disposition home or self-care (01) ==
LOC: M ED 16:31
DX: R51.9 Headache, unspecified (principal); I10 Essential (primary) hypertension; J45.909 Unspecified asthma, uncomplicated; K76.0 Fatty (change of) liver, not elsewhere classified; Z79.899 Other long term (current) drug therapy; Z88.0 Allergy status to penicillin; Z91.018 Allergy to other foods
CPT/HCPCS: 70450; 70544; 70551; 80048; 85025; 85652; 86850; 86900; 86901; 87631; 96361; 96365; 96375; 99285; J1200; J1885; J2270; J2405; J2765

== ENCOUNTER → 2022-01-25 | Outpatient (CLI) | payer OTHER ==
[~2022-01-25] MED LIST changes: +TOPA50TA8 PO
== END ==
LOC: M WHC 14:43
PROVIDERS: ATTEND Physician Assistant Medical
DX: E04.1 Nontoxic single thyroid nodule (principal)

== ENCOUNTER → 2022-01-25 | Outpatient (CLI) | payer OTHER | LOC: M WHC 14:31 | PROVIDERS: ATTEND Advanced Practice Midwife | DX: Z12.31 Encounter for screening mammogram for malignant neoplasm of breast (principal); Z53.9 Procedure and treatment not carried out, unspecified reason ==

== ENCOUNTER → 2022-02-22 | Outpatient (CLI) | payer OTHER | LOC: M WHC 13:28 | PROVIDERS: ATTEND Advanced Practice Midwife | DX: N64.4 Mastodynia (principal) | CPT/HCPCS: 76642; 77066; G0279 ==

== ENCOUNTER → 2022-10-26 | Outpatient (CLI) | payer OTHER | LOC: M RAD 13:50 | PROVIDERS: ATTEND Physician Assistant Medical | DX: E04.1 Nontoxic single thyroid nodule (principal) ==

== ENCOUNTER → 2023-05-09 | Outpatient (CLI) | payer OTHER | LOC: M WHC 15:12 | PROVIDERS: ATTEND Nurse Practitioner Family | DX: Z12.31 Encounter for screening mammogram for malignant neoplasm of breast (principal) ==

== ENCOUNTER → 2023-05-09 | Outpatient (REF) | payer OTHER | LOC: M SFHCWAGY 10:07 | PROVIDERS: ATTEND Nurse Practitioner Family | DX: Z12.4 Encounter for screening for malignant neoplasm of cervix (principal); Z01.419 Encounter for gynecological examination (general) (routine) without abnormal findings; Z77.9 Other contact with and (suspected) exposures hazardous to health ==

== ENCOUNTER 2023-09-30 16:34 | Emergency (ER) | payer BC, OTHER ==
[~2023-09-30] VITALS: Ht 162.6 cm; Wt 97.4 kg
[2023-09-30 20:29] LABS: BASO # 0.1 10^3/uL (0.0-0.2); BASO % 0.5 % (0.0-1.0); EOS # 0.1 10^3/uL (0.0-0.5); EOS % 1.1 % (0.0-3.0); HEMATOCRIT 45.1 % (36.0-47.0); HEMOGLOBIN 14.9 g/dl (12.0-15.5); LYMPH # 3.7 10^3/uL (1.5-5.0); LYMPH % 33.4 % (24.0-44.0); MEAN CORPUSCULAR HEMOGLOBIN 30.5 pg (27.0-33.0); MEAN CORPUSCULAR VOLUME 92.2 fl (80.0-96.0); MONO # 0.9 10^3/uL (0.0-0.8); MONO % 7.9 % (2.0-8.0); NEUTROPHILS # 6.3 10^3/uL (1.5-8.5); NEUTROPHILS % 56.8 % (36.0-66.0); PLATELET COUNT, AUTOMATED 291 10^3/uL (150-450); RED BLOOD COUNT 4.89 10^6/uL (4.00-5.40); WHITE BLOOD COUNT 11.2 10^3/uL (4.0-10.0)
[2023-09-30 20:35] LABS: URINE PREG TEST NEGATIVE (NEGATIVE)
[2023-09-30 20:43] LABS: INR 1.25; PROTHROMBIN TIME 15.3 SECONDS (12.5-14.5)
[2023-09-30 20:44] LABS: PARTIAL THROMBOPLASTIN TIME 32.3 SECONDS (24.8-34.2)
[2023-09-30 20:58] LABS: LIPASE 33 U/L (12-53)
[2023-09-30 20:59] LABS: AMYLASE 66 U/L (30-118)
[2023-09-30 21:00] LABS: ALBUMIN 3.4 G/DL (3.2-5.2); ALKALINE PHOSPHATASE 77 U/L (46-116); ALT/SGPT 38 U/L (7.0-40); AST/SGOT 28 U/L (<34); BILIRUBIN,DIRECT 0.2 MG/DL (<0.4); BILIRUBIN,TOTAL 0.7 MG/DL (0.3-1.2); BLOOD UREA NITROGEN 10 MG/DL (9-23); CALCIUM LEVEL 8.9 MG/DL (8.5-10.1); CARBON DIOXIDE LEVEL 24 MMOL/L (20-31); CHLORIDE LEVEL 108 MMOL/L (98-107); CREATININE FOR GFR 0.69 MG/DL (0.55-1.30); GLOMERULAR FILTRATION RATE > 60.0 (>58); GLUCOSE, FASTING 92 MG/DL (60-100); POTASSIUM SERUM 3.9 MMOL/L (3.5-5.1); SODIUM LEVEL 139 MMOL/L (136-145); TOTAL PROTEIN 6.9 G/DL (5.7-8.2)
[2023-09-30] MEDS ORDERED: NS 1,000 ML IV ONE (23:05)
[2023-09-30] MEDS ORDERED: MORPHINE 4 MG/ML 1ML VIAL IV ONE (23:05)
[2023-09-30] MEDS ORDERED: ONDANSETRON 4MG 2ML VIAL IV ONE (23:15)
[2023-09-30] MEDS ORDERED: ISOVUE-370 76% 100ML VIAL As Ordered ONE (23:21)
[2023-10-01] MEDS ORDERED: HYDR-4571 PO (00:14)
[2023-10-01] MEDS ORDERED: AMOX875T2 PO (00:14)
[2023-10-01] MEDS ORDERED: ONDA4TAB6 PO (00:14)
[2023-10-01] MEDS ORDERED: AUGMENTIN 875 MG TAB PO ONE (00:15)
[2023-10-01 00:22] VITALS: BP 132/72; TEMP 97.1; O2SAT 100
== END 2023-10-01 00:52 | disposition home or self-care (01) ==
LOC: M ED 16:34
DX: K57.92 Diverticulitis of intestine, part unspecified, without perforation or abscess without bleeding (principal); Z88.0 Allergy status to penicillin; J45.909 Unspecified asthma, uncomplicated; K76.0 Fatty (change of) liver, not elsewhere classified; Z79.899 Other long term (current) drug therapy
CPT/HCPCS: 74177; 80048; 80076; 81001; 82150; 83605; 83690; 84703; 85025; 85610; 85730; 96361; 96374; 96375; 99284; J2405; Q9967

== ENCOUNTER 2024-01-15 23:27 | Emergency (ER) | payer BC ==
[~2024-01-15] VITALS: Ht 162.6 cm; Wt 99.9 kg
[~2024-01-15 23:27] MED LIST changes: +AMOX875T2 PO; +HYDR-4571 PO; +ONDA4TAB6 PO
[2024-01-15] MEDS ORDERED: AMLO2.5T3 (23:42)
[2024-01-16 03:52] LABS: BASO % 0.3 % (0.0-1.0); EOS # 0.1 10^3/uL (0.0-0.5); EOS % 0.4 % (0.0-3.0); HEMATOCRIT 44.6 % (36.0-47.0); HEMOGLOBIN 15.3 g/dl (12.0-15.5); LYMPH # 3.8 10^3/uL (1.5-5.0); LYMPH % 26.6 % (24.0-44.0); MEAN CORPUSCULAR HEMOGLOBIN 31.4 pg (27.0-33.0); MEAN CORPUSCULAR HGB CONC 34.3 g/dl (32.0-36.5); MEAN CORPUSCULAR VOLUME 91.6 fl (80.0-96.0); MONO # 1.2 10^3/uL (0.0-0.8); MONO % 8.1 % (2.0-8.0); NEUTROPHILS # 9.2 10^3/uL (1.5-8.5); NEUTROPHILS % 64.2 % (36.0-66.0); PLATELET COUNT, AUTOMATED 333 10^3/uL (150-450); RED BLOOD COUNT 4.87 10^6/uL (4.00-5.40); WHITE BLOOD COUNT 14.3 10^3/uL (4.0-10.0)
[2024-01-16 04:03] LABS: CK-MB VALUE MASS < 1.0 NG/ML (<3.6)
[2024-01-16 04:04] LABS: BLOOD UREA NITROGEN 11 MG/DL (9-23); CALCIUM LEVEL 9.1 MG/DL (8.5-10.1); CARBON DIOXIDE LEVEL 27 MMOL/L (20-31); CHLORIDE LEVEL 110 MMOL/L (98-107); CPK CREATINE PHOSPHOKINASE 51 U/L (34-145); CREATININE FOR GFR 0.69 MG/DL (0.55-1.30); GLOMERULAR FILTRATION RATE > 60.0 (>58); GLUCOSE, FASTING 95 MG/DL (60-100); MAGNESIUM LEVEL 1.8 MG/DL (1.8-2.4); MB/CK RELATIVE INDEX 1.96 (< OR =4); SODIUM LEVEL 142 MMOL/L (136-145)
[2024-01-16] MEDS: KETOROLAC 60MG 2ML VIAL IM ONE (05:16)
[2024-01-16 05:19] VITALS: BP 148/88; TEMP 98; O2SAT 96
== END 2024-01-16 05:26 | disposition home or self-care (01) ==
LOC: M ED 23:27
DX: J06.9 Acute upper respiratory infection, unspecified (principal); I10 Essential (primary) hypertension; G43.909 Migraine, unspecified, not intractable, without status migrainosus; Z88.0 Allergy status to penicillin; Z91.010 Allergy to peanuts; Z79.1 Long term (current) use of non-steroidal anti-inflammatories (NSAID); Z79.2 Long term (current) use of antibiotics; Z79.811 Long term (current) use of aromatase inhibitors; Z79.899 Other long term (current) drug therapy
CPT/HCPCS: 71045; 80048; 82550; 82553; 83735; 84484; 85025; 87486; 87581; 87633; 87798; 93005; 96372; 99284; J1885

== ENCOUNTER → 2024-06-11 | Outpatient (CLI) | payer BC ==
[~2024-06-11] MED LIST changes: +AMIT25TA19 PO; +AMLO2.5T3 PO; +CETI10CH PO; +EPIP0.3I2 IM; +LISI5TAB11 PO; +NORT25CA2 PO; +OMEP40CA5 PO; +ONDA-282 PO; +ONDA-284; -ONDA4TAB6 PO; -ONDA8TAB8; +PROA1AER2 INH; +TIZA10TA PO; +TOPI-21 PO; +mirena
== END ==
LOC: M WHC 15:29
PROVIDERS: ATTEND Nurse Practitioner Family
DX: Z12.31 Encounter for screening mammogram for malignant neoplasm of breast (principal)

== ENCOUNTER → 2024-06-11 | Outpatient (REF) | payer BC ==
[2024-06-16 15:17] LABS: HPV APTIMA Not Detected (Not Detected)
== END ==
LOC: M SFHCWAGY 13:18
PROVIDERS: ATTEND Nurse Practitioner Family
DX: Z12.4 Encounter for screening for malignant neoplasm of cervix (principal)

== ENCOUNTER 2024-06-22 10:40 | Day surgery (SDC) | payer BC ==
[~2024-06-22] VITALS: Ht 160 cm; Wt 100.2 kg
[~2024-06-22 10:40] MED LIST changes: +NS 250 ML IV ONE
[2024-06-22] MEDS ORDERED: propofoL 200 MG/20 ML VIAL As Ordered ONE (12:57)
[2024-06-22] MEDS ORDERED: ePHEDrine SULFATE 25 MG/5 ML(5MG/ML) SYRINGE As Ordered ONE (13:18)
[2024-06-22 13:24] VITALS: TEMP 98.2
[2024-06-22 13:45] VITALS: BP 116/72; O2SAT 97
== END 2024-06-22 13:57 | disposition home or self-care (01) ==
LOC: M OPP 10:40
PROVIDERS: ATTEND Internal Medicine Gastroenterology
DX: K63.5 Polyp of colon (principal); K57.30 Diverticulosis of large intestine without perforation or abscess without bleeding; K21.9 Gastro-esophageal reflux disease without esophagitis; I10 Essential (primary) hypertension; K76.0 Fatty (change of) liver, not elsewhere classified; J45.909 Unspecified asthma, uncomplicated; Z79.899 Other long term (current) drug therapy; Z90.89 Acquired absence of other organs; Z88.0 Allergy status to penicillin; Z91.018 Allergy to other foods; J39.2 Other diseases of pharynx

== ENCOUNTER → 2024-07-09 | Outpatient (REF) | payer BC ==
[~2024-07-09] MED LIST changes: -NS 250 ML IV ONE
[2024-07-09 18:35] LABS: BASO # 0.1 10^3/uL (0.0-0.2); BASO % 0.6 % (0.0-1.0); EOS # 0.1 10^3/uL (0.0-0.5); EOS % 1.5 % (0.0-3.0); HEMATOCRIT 44.5 % (36.0-47.0); HEMOGLOBIN 14.6 g/dl (12.0-15.5); LYMPH # 3.4 10^3/uL (1.5-5.0); LYMPH % 42.9 % (24.0-44.0); MEAN CORPUSCULAR HEMOGLOBIN 31.1 pg (27.0-33.0); MEAN CORPUSCULAR HGB CONC 32.8 g/dl (32.0-36.5); MEAN CORPUSCULAR VOLUME 94.9 fl (80.0-96.0); MONO # 0.8 10^3/uL (0.0-0.8); MONO % 9.7 % (2.0-8.0); NEUTROPHILS # 3.5 10^3/uL (1.5-8.5); NEUTROPHILS % 45.2 % (36.0-66.0); PLATELET COUNT, AUTOMATED 321 10^3/uL (150-450); RED BLOOD COUNT 4.69 10^6/uL (4.00-5.40); WHITE BLOOD COUNT 7.8 10^3/uL (4.0-10.0)
[2024-07-09 18:54] LABS: CREATININE, URINE 186.2 MG/DL; MAU/CREAT RATIO 3.2 MCG/MG (0.0-30.0)
[2024-07-09 18:55] LABS: ALBUMIN 3.4 G/DL (3.2-5.2); ALKALINE PHOSPHATASE 70 U/L (35-104); ALT/SGPT 71 U/L (7.0-40); AST/SGOT 50 U/L (<34); BILIRUBIN,TOTAL 0.3 MG/DL (0.3-1.2); BLOOD UREA NITROGEN 12 MG/DL (9-23); CALCIUM LEVEL 9.5 MG/DL (8.5-10.1); CARBON DIOXIDE LEVEL 24 MMOL/L (20-31); CHLORIDE LEVEL 110 MMOL/L (98-107); CHOLESTEROL LEVEL 213 MG/DL (<200); CREATININE FOR GFR 0.75 MG/DL (0.55-1.30); GLOMERULAR FILTRATION RATE > 60.0 (>58); GLUCOSE, FASTING 92 MG/DL (60-100); HDL CHOLESTEROL 34.3 MG/DL (>40); LDL CHOLESTEROL 145.5 MG/DL (<100); NON-HDL-C 178.7 MG/DL; POTASSIUM SERUM 4.1 MMOL/L (3.5-5.1); SODIUM LEVEL 141 MMOL/L (136-145); TRIGLYCERIDES LEVEL 166 MG/DL (<150)
[2024-07-09 18:57] LABS: THYROID STIMULATING HORMONE 1.714 uIU/ML (0.55-4.78); TOTAL 25(OH) VITAMIN D 23.7 NG/ML (20.0-100.0)
[2024-07-09 19:18] LABS: HEMOGLOBIN A1c 5.6 % (4.0-6.0)
== END ==
LOC: M LABDRWAD 17:04
PROVIDERS: ATTEND Physician Assistant Medical
DX: E78.5 Hyperlipidemia, unspecified (principal); E04.1 Nontoxic single thyroid nodule; I10 Essential (primary) hypertension; E55.9 Vitamin D deficiency, unspecified; R73.01 Impaired fasting glucose

== ENCOUNTER → 2024-08-25 | Outpatient (CLI) | payer BC ==
[2024-08-25 15:32] LABS: BASO # 0.1 10^3/uL (0.0-0.2); BASO % 0.6 % (0.0-1.0); EOS # 0.1 10^3/uL (0.0-0.5); EOS % 1.4 % (0.0-3.0); HEMATOCRIT 47.4 % (36.0-47.0); HEMOGLOBIN 15.6 g/dl (12.0-15.5); LYMPH # 2.2 10^3/uL (1.5-5.0); MEAN CORPUSCULAR HEMOGLOBIN 31.3 pg (27.0-33.0); MEAN CORPUSCULAR HGB CONC 32.9 g/dl (32.0-36.5); MONO # 1.1 10^3/uL (0.0-0.8); MONO % 12.4 % (2.0-8.0); NEUTROPHILS % 59.4 % (36.0-66.0); PLATELET COUNT, AUTOMATED 354 10^3/uL (150-450); RED BLOOD COUNT 4.99 10^6/uL (4.00-5.40); WHITE BLOOD COUNT 8.5 10^3/uL (4.0-10.0)
[2024-08-25 15:33] LABS: ALBUMIN 3.4 G/DL (3.2-5.2); ALKALINE PHOSPHATASE 71 U/L (35-104); ALT/SGPT 61 U/L (7.0-40); AST/SGOT 41 U/L (<34); BILIRUBIN,TOTAL 0.4 MG/DL (0.3-1.2); BLOOD UREA NITROGEN 13 MG/DL (9-23); CALCIUM LEVEL 9.5 MG/DL (8.5-10.1); CARBON DIOXIDE LEVEL 28 MMOL/L (20-31); CHLORIDE LEVEL 105 MMOL/L (98-107); CREATININE FOR GFR 0.81 MG/DL (0.55-1.30); GLOMERULAR FILTRATION RATE > 60.0 (>58); GLUCOSE, FASTING 92 MG/DL (60-100); POTASSIUM SERUM 4.4 MMOL/L (3.5-5.1); SODIUM LEVEL 140 MMOL/L (136-145); TOTAL PROTEIN 7.2 G/DL (5.7-8.2)
== END ==
LOC: M PLALAB 12:01
PROVIDERS: ATTEND Psychiatry & Neurology Neurology
DX: R51.9 Headache, unspecified (principal)

== ENCOUNTER → 2025-06-15 | Outpatient (REF) | payer BC ==
[~2025-06-15] MED LIST changes: +ACET-1599 PO; -EXCETAB44 PO
[2025-06-17 15:48] LABS: HPV APTIMA Not Detected (Not Detected)
== END ==
LOC: M SFHCWAGY 18:35
PROVIDERS: ATTEND Advanced Practice Midwife
DX: Z12.4 Encounter for screening for malignant neoplasm of cervix (principal)

== ENCOUNTER → 2025-06-15 | Outpatient (CLI) | payer BC | LOC: M WHC 16:26 | PROVIDERS: ATTEND Advanced Practice Midwife | DX: Z12.31 Encounter for screening mammogram for malignant neoplasm of breast (principal); R92.313 Mammographic fatty tissue density, bilateral breasts ==